=== PATIENT | female | born 1960 | race African-American/Black ===

== ENCOUNTER 2016-10-27 14:21 | Emergency (ER) | payer OTHER ==
--- NOTE | 2016-10-27 14:52 | ER Document Report ---
ED General - General Mode of Arrival: Ambulatory Information source: Patient TRAVEL OUTSIDE OF THE [place] IN LAST 30 DAYS: No <JAIDEN CARVALHO - Last Filed: 10/27/16 19:55> <FERDINAND HORNE - Last Filed: 10/27/16 22:34> - General Chief Complaint: Allergic Reaction Stated Complaint: POSSIBLE ALLERGIC REACTION Time Seen by Provider: 10/27/16 14:35 Notes: Patient is a 56-year-old female who presents to the emergency department today with complaints of a possible dystonic reaction to contrast for an H. pylori test. Patient states she was about to have a scope done to rule out H. Pylori. Patient states she has had something similar to this in the past and there was found to be an abnormality with her calcium. Patient states this was after she had "2 glands removed" in her neck. Patient denies any shortness of breath or difficulty breathing. Patient complains of mild upper extremity cramping. ( JAIDEN CARVALHO) - Related Data Allergies/Adverse Reactions: No Known Allergies Allergy (Verified 04/07/14 19:34) Past Medical History - General Information source: Patient - Social History Smoking Status: Never Smoker Cigarette use (# per day): No Frequency of alcohol use: None Drug Abuse: None Lives with: Family Family History: Reviewed & Not Pertinent - Past Medical History Cardiac Medical History: Reports: Hx Hypertension Past Surgical History: Reports: Hx Cholecystectomy, Hx Gastric Bypass Surgery, Hx Hysterectomy, Hx Thyroid Surgery - parathyroidectomy - Immunizations Hx Diphtheria, Pertussis, Tetanus Vaccination: Yes <JAIDEN CARVALHO - Last Filed: 10/27/16 19:55> Review of Systems - Review of Systems Constitutional: No symptoms reported EENT: No symptoms reported Cardiovascular: No symptoms reported Respiratory: No symptoms reported Gastrointestinal: No symptoms reported Genitourinary: No symptoms reported Female Genitourinary: No symptoms reported Musculoskeletal: See HPI, Other - bilateral upper extremity cramping Skin: No symptoms reported Hematologic/Lymphatic: No symptoms reported Neurological/Psychological: See HPI, Other - difficulty with speaking. denies: Weakness, Headaches, Numbness -: Yes All other systems reviewed and negative <JAIDEN CARVALHO - Last Filed: 10/27/16 19:55> Physical Exam <JAIDEN CARVALHO - Last Filed: 10/27/16 19:55> <FERDINAND HORNE - Last Filed: 10/27/16 22:34> - Vital signs Vitals: Temp Pulse Resp BP Pulse Ox 98.1 F 72 20 144/85 H 100 10/27/16 14:41 10/27/16 14:41 10/27/16 14:41 10/27/16 14:41 10/27/16 14:41 - Notes Notes: Physical Exam: General: Alert. HEENT: Normocephalic. Atraumatic. PERRL. Extraocular movements intact. Oropharynx clear. Neck: Supple. Non-tender. Respiratory: No respiratory distress. Clear and equal breath sounds bilaterally. Cardiovascular: Regular rate and rhythm. Abdominal: Normal Inspection. Non-tender. No distension. Normal Bowel Sounds. Back: Non-tender. No deformity or step off. Extremities: Moves all four extremities. Upper extremities: Cramps in hands, remained flexed bilaterally. Lower extremities: Normal inspection. No edema. Normal ROM. Neurological: Normal cognition. AAOx4. Difficulty with speech. Psychological: Normal affect. Normal Mood. Skin: Warm. Dry. Normal color. (JAIDEN CARVALHO) Course - Laboratory Result Diagrams: 10/27/16 15:44 10/27/16 15:44 <JAIDEN CARVALHO - Last Filed: 10/27/16 19:55> - Laboratory Result Diagrams: 10/27/16 15:44 10/27/16 15:44 - Diagnostic Test Radiology reviewed: Reports reviewed <FERDINAND HORNE - Last Filed: 10/27/16 22:34> - Re-evaluation Re-evalutation: 10/27/16 16:42 Patient appears well at this time. No acute findings on blood work or imaging. Patient's symptoms are resolving with time, fluids,. Patient felt better after Benadryl. Patient is instructed to return if she has any worsening or concerning symptoms. She can take Benadryl at home. Understands and agrees with plan. Stable for discharge. (FERDINAND HORNE) - Vital Signs Vital signs: Temp Pulse Resp BP Pulse Ox 98.1 F 70 16 121/67 97 10/27/16 18:54 10/27/16 18:54 10/27/16 18:54 10/27/16 18:54 10/27/16 18:54 - Laboratory Laboratory results interpreted by me: 10/27/16 15:44 WBC 13.6 H Seg Neutrophils % 79.9 H Absolute Neutrophils 10.9 H Discharge <JAIDEN CARVALHO - Last Filed: 10/27/16 19:55> <FERDINAND HORNE - Last Filed: 10/27/16 22:34> - Discharge Clinical Impression: Dystonic drug reaction Adverse drug reaction Qualifiers: Encounter type: initial encounter Qualified Code(s): T88.7XXA - Unspecified adverse effect of drug or medicament, initial encounter Condition: Stable Disposition: HOME, SELF-CARE Instructions: Medication Side Effects ([facility]), Dystonic Reaction to Medication ( [facility]) Additional Instructions: Please follow-up with your doctor. You may take Benadryl at home tonight. Please return if you have any further concerns Forms: Return to Work Referrals: NORMAN RUIZ MD [Primary Care Provider] - Follow up as needed Scribe Attestation: 10/27/16 22:33 I personally performed the services described in the documentation, reviewed and edited the documentation which was dictated to the scribe in my presence, and it accurately records my words and actions. (FERDINAND HORNE) Scribe Documentation - Scribe Written by Leana:: Leana Polo, 10/27/2016 1603 acting as scribe for :: Shayan <JAIDEN CARVALHO - Last Filed: 10/27/16 19:55>
--- NOTE | 2016-10-27 15:35 | RADIOLOGY REPORT (SQ) ---
EXAM DESCRIPTION: CT HEAD WITHOUT COMPLETED DATE/TIME: 10/27/2016 3:08 pm REASON FOR STUDY: aphasia COMPARISON: None. TECHNIQUE: Axial images acquired through the brain without intravenous contrast. Images reviewed wi th bone, brain and subdural windows. Images stored on PACS. All CT scanners at this facility use dose modulation, iterative reconstruction, and/or weight based d osing when appropriate to reduce radiation dose to as low as reasonably achievable (ALARA). [facility]: Dose Right [facility]: CareDose [facility]: Dose Right [facility]: Teradose 4D [facility]: [employer] RADIATION DOSE: Up-to-date CT equipment and radiation dose reduction techniques were employed. CTDIv ol: 64.6 mGy. DLP: 1034 mGy-cm. mGy. LIMITATIONS: None. FINDINGS: VENTRICLES: Normal size and contour. CEREBRUM: No masses. No hemorrhage. No midline shift. Normal gunderson/white matter differentiation. N o evidence for acute infarction. CEREBELLUM: No masses. No hemorrhage. No alteration of density. No evidence for acute infarction. EXTRAAXIAL SPACES: No fluid collections. No masses. ORBITS AND GLOBE: No intra- or extraconal masses. Normal contour of globe without masses. CALVARIUM: No fracture. PARANASAL SINUSES: No fluid or mucosal thickening. SOFT TISSUES: No mass or hematoma. OTHER: No other significant finding. IMPRESSION: NORMAL BRAIN CT WITHOUT CONTRAST. TECHNICAL DOCUMENTATION: JOB ID: [id number] Quality ID # [id number]: Final reports with documentation of one or more dose reduction techniques (e.g., Au tomated exposure control, adjustment of the mA and/or kV according to patient size, use of iterative reconstruction technique) 2010 [employer]- All Rights Reserved
--- NOTE | 2016-10-27 15:43 | RADIOLOGY REPORT (SQ) ---
EXAM DESCRIPTION: CHEST SINGLE VIEW COMPLETED DATE/TIME: 10/27/2016 3:28 pm REASON FOR STUDY: weakness COMPARISON: None. NUMBER OF VIEWS: One view. TECHNIQUE: Single frontal radiographic view of the chest acquired. LIMITATIONS: None. FINDINGS: LUNGS AND PLEURA: No opacities, masses or pneumothorax. No pleural effusion. MEDIASTINUM AND HILAR STRUCTURES: No masses. Contour normal. HEART AND VASCULAR STRUCTURES: Heart normal in size. Normal vasculature. BONES: No acute findings. HARDWARE: None in the chest. OTHER: No other significant finding. IMPRESSION: NO SIGNIFICANT RADIOGRAPHIC FINDING IN THE CHEST. TECHNICAL DOCUMENTATION: JOB ID: [id number] [employer]- All Rights Reserved
[2016-10-27 15:54] LABS: ABSOLUTE BASOPHILS # (AUTO) 0.1 10^3/uL (0.0-0.2); ABSOLUTE EOSINOPHILS # (AUTO) 0.1 10^3/uL (0.0-0.6); ABSOLUTE MONOCYTES (AUTO) 0.6 10^3/uL (0.1-1.4); ABSOLUTE NEUT (AUTO) 10.9 10^3/uL (1.7-8.2); BASOPHILS % (AUTO) 0.4 % (0-2); EOSINOPHILS % (AUTO) 0.5 % (0-6); HEMATOCRIT 39.6 % (36.0-47.0); HEMOGLOBIN 13.3 g/dL (12.0-15.5); HGB HCT DIFFERENCE 0.3; LYMPHOCYTES % (AUTO) 14.7 % (13-45); MEAN CORPUSCULAR HGB CONC 33.6 g/dL (32.0-36.0); MEAN CORPUSCULAR VOLUME 86 fl (80-97); MONOCYTES % (AUTO) 4.5 % (3-13); RED CELL DISTRIBUTION WIDTH 12.8 % (11.5-14.0); SEGMENTED NEUTROPHILS % (AUTO) 79.9 % (42-78); WHITE BLOOD COUNT 13.6 10^3/uL (4.0-10.5)
[2016-10-27 16:16] LABS: ALANINE AMINOTRANSFERASE 34 U/L (9-52); ALBUMIN 4.3 g/dL (3.5-5.0); ALKALINE PHOSPHATASE 124 U/L (38-126); ANION GAP 10 (5-19); ASPARTATE AMINO TRANSFERASE 28 U/L (14-36); BILIRUBIN,DIRECT 0.4 mg/dL (0.0-0.4); BILIRUBIN,TOTAL 0.4 mg/dL (0.2-1.3); BLOOD UREA NITROGEN 10 mg/dL (7-20); CALCIUM 10.1 mg/dL (8.4-10.2); CARBON DIOXIDE 28 mmol/L (22-30); CHLORIDE 101 mmol/L (98-107); CREATINE KINASE 76 U/L (30-135); CREATININE RESULT 0.71 mg/dL (0.52-1.25); GLUCOSE 88 mg/dL (75-110); POTASSIUM 3.7 mmol/L (3.6-5.0); TOTAL PROTEIN 7.4 g/dL (6.3-8.2)
[2016-10-27 16:28] LABS: CREATINE KINASE MB 0.32 ng/mL (<4.55); TROPONIN I 0.017 ng/mL
[2016-10-27] MEDS ORDERED: DIPHENHYDRAMINE HCL 50 MG/ML VIAL IV ONE (17:08)
[2016-10-27 19:13] VITALS: BP 121/67
== END 2016-10-27 19:13 | disposition home or self-care (01) ==
LOC: ER 14:21
DX: G24.09 Other drug induced dystonia (principal); T50.8X5A Adverse effect of diagnostic agents, initial encounter; X58.XXXA Exposure to other specified factors, initial encounter
CPT/HCPCS: 99284; 96374; 36415; 82553; 82550; 84443; 85025; 80053; 84484; 71010; 70450; J1200

== ENCOUNTER → 2017-05-27 | Outpatient (CLI) | payer OTHER ==
--- NOTE | 2017-05-27 08:07 | WOMENS IMAGING REPORT ---
EXAM DESCRIPTION: BILAT SCREENING MAMMO W/CAD COMPLETED DATE/TIME: 05/27/2017 7:42 am REASON FOR STUDY: SCREENING MAMMO Z12.31 ENCNTR SCREEN MAMMOGRAM FOR MALIGNANT NEOPLASM OF SACHIN COMPARISON: 11/21/2015 and 11/16/2012. TECHNIQUE: Standard craniocaudal and mediolateral oblique views of each breast recorded using digita l acquisition. LIMITATIONS: None. FINDINGS: No masses, calcifications or architectural distortion. No areas of suspicion. Read with the assistance of CAD. .[facility] - R2 [employer] Version 1.3 .[facility] Imaging - R2 Cenova Version 1.3 .[facility] - R2 Cenova Version 2.4 .[facility] - R2 Cenova Version 2.4 .[facility] - R2 [employer] Version 9.2 IMPRESSION: NORMAL MAMMOGRAM. BIRADS 1. BREAST DENSITY: c. The breasts are heterogeneously dense, which may obscure small masses. BIRAD: 1 NEGATIVE RECOMMENDATION: ROUTINE SCREENING COMMENT: The patient has been notified of the results by letter per SA requirements. Additional no tification policies are in place for contacting patient with suspicious or incomplete findings. Quality ID #[id number]: The [employer] recommends an annual screening mammogram for women aged 40 years or over. This facility utilizes a reminder system to ensure that all patients receive reminder letters, and/or direct phone calls for appointments. This includes reminders for routine scr eening mammograms, diagnostic mammograms, or other Breast Imaging Interventions when appropriate. Th is patient will be placed in the appropriate reminder system. The [employer] (ACR) has developed recommendations for screening MRI of the breast s in certain patient populations, to be used in conjunction with mammography. Breast MRI surveillanc e may be appropriate for women with more than 20% lifetime risk of developing breast cancer as deter mined by genetic testing, significant family history of the disease, or history of mantle radiation f or Hodgkins Disease. ACR Practice Guidelines 2008. TECHNICAL DOCUMENTATION: FINDING NUMBER: (1) ASSESSMENT: (1) JOB ID: [id number] [employer]- All Rights Reserved Reading location - IP/workstation name: [facility]
== END ==
LOC: WI 06:51
PROVIDERS: ATTEND Family Medicine
DX: Z12.31 Encounter for screening mammogram for malignant neoplasm of breast (principal)
CPT/HCPCS: 77067

== ENCOUNTER 2017-12-14 07:38 | Day surgery (SDC) | payer OTHER ==
[2017-12-14 08:25] LABS: INTERNATIONAL RATION (INR) 0.91; PROTHROMBIN TIME 12.7 SEC (11.4-15.4)
[2017-12-14 08:26] LABS: PARTIAL THROMBOPLASTIN TIME 32.2 SEC (23.5-35.8)
[2017-12-14] MEDS ORDERED: LIDOCAINE 1% INJ-PF (10 MG/ML) 30 ML SDV ONE (09:21)
[2017-12-14 12:19] VITALS: BP 104/64
--- NOTE | 2017-12-14 14:50 | RADIOLOGY REPORT (SQ) ---
EXAM DESCRIPTION: MYELOGRAM 2 OR MORE LEVELS; CT THORACIC SPINE WITH; CT LUMBAR SPINE WITH COMPLETED DATE/TIME: 12/14/2017 10:19 am; 12/14/2017 10:23 am REASON FOR STUDY: RADICULOPATHY LUMBAR REGION AND THORACIC REGION; RADICULOPATHY WITH LUMBAR AND THO RACIC REGION M54.16 RADICULOPATHY, LUMBAR REGION M54.14 RADICULOPATHY, THORACIC REGION COMPARISON: None. FLUOROSCOPY TIME: 1 minutes 30 seconds total fluoro time 25 digital radiographic images saved to PACS. TECHNIQUE: Fluoroscopic guided lumbar myelogram. LIMITATIONS: None. PROCEDURE: After written consent and assessment were obtained, the patient was brought into the fluo roscopy room and placed prone on the table. The patient's lower back was prepped in a sterile fashio n and an entry site was selected under live fluoroscopic guidance. The entry site was anesthetized wi th 3 mL of 1% lidocaine. The 22 gauge spinal needle was advanced through the skin and into the thecal sac at the left paracentral L2-3 level. 10 mL of Isovue M 200 Contrast was injected into the thecal sac. Following the procedure the needle was removed and a sterile bandage was placed of the site. No immediate postprocedure complications. CONTRAST: 10 mL Isovue M 200. IMAGES ACQUIRED: Prone oblique and upright lateral flexion/extension lumbar images. Prone cross-tabl e lumbar images. Prone and supine cross-table lateral thoracic spine images. Postmyelogram CT of the thoracic and lumbar spine was performed, reviewed at bone and soft tissue win dows with sagittal and coronal reconstructions and multiplanar maximum intensity projected images thr ough the thoracic and lumbar spine. POSTMYELOGRAM CT SCAN: Postmyelogram CT of the thoracic and lumbar spine was performed, reviewed at bone and soft tissue windows with sagittal and coronal reconstructions and multiplanar maximum intens ity projected images through the thoracic and lumbar spine. TECHNIQUE: After performing lumbar myelogram, axial images were acquired through the lumbar spine wi thout intravenous contrast. Images reviewed with lung, soft tissue and bone windows. Reconstructed coronal and sagittal MPR images reviewed. All images stored on PACS. All CT scanners at this facility use dose modulation, iterative reconstruction, and/or weight based d osing when appropriate to reduce radiation dose to as low as reasonably achievable (ALARA). [facility]: Dose Right [facility]: CareDose [facility]: Dose Right [facility]: Teradose 4D [facility]: [employer] FINDINGS: FLUOROSCOPIC AND RADIOGRAPHIC FINDINGS: The fluoroscopic digital images of the lumbar spine demonstrate high-grade central canal stenosis at the L4-5 level related to grade 1 anterolisthesis of L4 over L5. This is stable between prone, and u pright views, and unchanged on flexion/extension images. Patient is post old fusion at L5-S1 with transpedicular screws, dorsal fixation plates and a metallic disc spacer. Fixed minimal grade 1 anterolisthesis of L5 over S1 is present. The prone oblique images of the lumbar spine demonstrate truncation of filling of the proximal L5 ner ve roots in the lateral recesses at the L4-5 level. Fluoroscopic and cross-table images of the thoracic spine demonstrate no significant central canal st enosis. Minimal posterior bony spurring at the T5-6 disc level without significant central canal chaz nosis. Conus is at the T12-L1 level. POSTMYELOGRAM CT THORACIC SPINE AND LUMBAR SPINE: Postmyelogram CT of the thoracic spine was performed, reviewed at bone lung and soft tissue windows w ith sagittal and coronal reconstructions. No significant central canal stenosis. No significant foraminal encroachment in the thoracic spine. No bulky facet or costovertebral joint bony spurring. No thoracic compression deformities. Normal caliber spinal cord. Adjacent mediastinal and lung parenchymal structures are unremarkable. Conus i s at the T12-L1 level. Dodie post cholecystectomy and gastric bypass. POSTMYELOGRAM CT of the lumbar spine was performed, reviewed at bone and soft tissue windows with sag ittal and coronal reconstructions. The T12-L1, L1-2, L2-3, and L3-4 disc levels are unremarkable. No significant central or foraminal e ncroachment. At L4-5, high-grade central canal stenosis is present, with effacement of the CSF around the lumbar n erve roots, best shown on axial images 147-152. This results from mild grade 1 anterolisthesis of L4 over L5 along with minimal posterior disc bulging and very bulky bilateral ligamentum flavum thicken ing. The bilateral L4 nerve roots exit above the level of central canal stenosis. Very mild bilater al foraminal narrowing at L4-5 is present from facet arthropathy. There is truncation of filling of the bilateral proximal L5 nerve roots in the lateral recesses at the L4-5 level. This correlates wit h the fluoroscopic findings. At L5-S1, patient is post remote prior discectomy and fusion with metallic disc spacer, transpedicula r screws and bilateral dorsal fixation plates. The bilateral proximal L5 nerve roots are difficult t o visualize, the L5 nerve root sleeves do not fill well with contrast. No significant bony foraminal narrowing. Inferior to the L5-S1 disc level, there is good filling of the thecal sac with contrast. Sacral nerv e roots are unremarkable. IMPRESSION: No significant central or foraminal stenosis in the thoracic spine High-grade central canal stenosis at L4-5 with effacement of the contrast around the lumbar nerve berkley ts, and very poor filling of the bilateral proximal L5 nerve root sleeves in the lateral recesses at fluoroscopy and CT. COMMENT: Patient medication list reviewed: Yes- Quality ID# [id number]:Eligible professional attests to doc umenting in the medical record they obtained, updated, or reviewed the patient's current medications. TECHNICAL DOCUMENTATION: JOB ID: [id number] Quality ID # 436: Final reports with documentation of one or more dose reduction techniques (e.g., Au tomated exposure control, adjustment of the mA and/or kV according to patient size, use of iterative reconstruction technique) 2010 [employer]- All Rights Reserved Reading location - IP/workstation name: [email or web address]
== END 2017-12-14 12:00 | disposition home or self-care (01) ==
LOC: RAD 07:38
PROVIDERS: ATTEND Family Medicine
DX: M54.16 Radiculopathy, lumbar region (principal); M54.14 Radiculopathy, thoracic region; I10 Essential (primary) hypertension; M48.061 Spinal stenosis, lumbar region without neurogenic claudication
CPT/HCPCS: 36415; 85610; 85730; 72270; 72129; 72132; J3490